=== PATIENT | male | born 1965 | race Caucasian/White ===

== ENCOUNTER → 2018-07-04 | Outpatient (CLI) | payer OTHER ==
--- NOTE | 2018-07-04 11:35 | RAD ---
Lumbar spine, 2 views, 07/04/2018: HISTORY: Back pain, old injury No lumbar fracture or subluxation is evident. A slight concave superior endplate deformity at T12 appears old. There is mild to moderate disc space narrowing throughout the lumbar spine with endplate sclerosis and extensive marginal spurring at multiple levels. There are mild degenerative changes involving scattered facet joints bilaterally. There is a slight lumbar scoliosis. Aortic calcific plaquing is present. The paraspinous soft tissues are otherwise unremarkable. IMPRESSION: 1. Moderate to severe multilevel hypertrophic degenerative change. 2. No acute bony abnormality is detected. Electronically signed by: Shailesh Evangelista MD (07/04/2018 11:32 AM) [facility]
--- NOTE | 2018-07-19 18:23 | HP ---
ADMIT DATE: HISTORY OF PRESENT ILLNESS: The patient is referred by Dr. De Paz because of right inguinal hernia. The history shows that he has had this for some months. We could not get a clear history as the patient is somewhat limited mentally and appears to have problems with his deformed left arm from and also has had a fractured left hip and something wrong with his knee where he has had surgery. At any rate, he is not able to comprehend fully, but does not know exactly how long it has been there, but he says for some time. He hurts, gets stuck out because of lot of difficulties. This is the right inguinal mass that we are talking about. PAST MEDICAL AND SURGICAL HISTORY: Shows normal childhood diseases. He has some type of mental problem and also cerebral palsy I think. He has had surgery on his hip and the knee and also has had some type of eye surgery, which he is not certain with yet. ALLERGIES: He does not have any allergies. MEDICATIONS: He takes a baby aspirin, but does not take medicine for anything else. SOCIAL HISTORY: He has no children. He does not smoke, drink or use illicit drugs. REVIEW OF SYSTEMS: Negative except for the left hip pain and also the right groin pain where he had this mass that hurts. Otherwise, no GI or other problem. PHYSICAL EXAMINATION: GENERAL: Shows him to be clinically alert and oriented and in no acute distress. HEAD, EYES, EARS, NOSE AND THROAT: Grossly normal. CHEST: Clear bilaterally to auscultation. HEART: Had normal heart tones and the rate was 70 beats per minute, was regular. EXTREMITIES: Has deformed spastic left hand, probably from childbirth injury with cerebral palsy. He does limp when he walks and I do not know if this is from the cerebral palsy or the fractured hip. ABDOMEN: He has had no surgery on his abdomen. The examination of the abdomen shows it to be unremarkable except for mass in the right groin with increase in intraabdominal pressure. We could not reduce this mass in the right inguinal area. GENITOURINARY: Testicles are otherwise unremarkable. RECTAL: Not done. IMPRESSION: 1. Right inguinal hernia, incarcerated. 2. Cerebral palsy. 3. Status post fractured left hip. 4. Possible mental insufficiency. NOEMI AGUERO MD DR: JOHN/azra JOB#: [id number] / [id number]
== END | disposition home or self-care (01) ==
LOC: RAD 09:39
PROVIDERS: ATTEND Surgery
DX: M47.816 Spondylosis without myelopathy or radiculopathy, lumbar region (principal); M41.86 Other forms of scoliosis, lumbar region; M48.061 Spinal stenosis, lumbar region without neurogenic claudication; M43.8X4 Other specified deforming dorsopathies, thoracic region
CPT/HCPCS: 72100